=== PATIENT | male | born 1950 | race Caucasian/White ===

== ENCOUNTER 2016-04-10 08:25 | Outpatient (CLI) | payer MEDICARE, OTHER ==
[~2016-04-10] VITALS: Ht 182.9 cm; Wt 87.1 kg
[2016-04-10] VITALS (18 sets, daily range): BP systolic 90–128; BP diastolic 54–90
[~2016-04-10 08:25] MED LIST: ATOR40TA59 PO; DIPH25TA64 PO; FERR-26 PO; FURO20TA3 PO; INSU100C4 SQ; INSU100I17 SQ; INSU100V13 SQ; LEVO25TA2 PO; LISI2.5T PO; MELA3TAB PO; METF500T4 PO; NADO20TA PO; PRED20TA PO; SPIR25TA3 PO
[2016-04-10 08:55] LABS: BASO % 1 % (0-3); EOS % 3 % (0-3); HEMATOCRIT 37.3 % (39.0-53.0); LYMPH # 0.8 x10^3/uL (1.0-4.8); LYMPH % 14 % (24-48); MEAN CORPUSCULAR HEMOGLOBIN 31 pg (25-35); MEAN CORPUSCULAR HGB CONC 35 g/dL (31-37); MEAN CORPUSCULAR VOLUME 90 fL (79-100); MONO % 13 % (0-9); NEUT % 70 % (31-73); PLATELET COUNT 92 x10^3/uL (140-400); RED BLOOD COUNT 4.17 x10^6/uL (4.30-5.70); RED CELL DISTRIBUTION WIDTH 16.8 % (11.5-14.5); WHITE BLOOD COUNT 5.9 x10^3/uL (4.0-11.0)
[2016-04-10 10:22] LABS: INR 1.4 (0.8-1.1); PROTHROMBIN TIME PATIENT 15.9 SEC (11.7-14.0)
[2016-04-10] MEDS ORDERED: LIDOCAINE 1% / SOD BICARB 8.4% 20 ML VIAL. IJ ONE ×2 (11:20→11:45)
[2016-04-10] MEDS ORDERED: DIAZEPAM 5 MG TABLET PO ONE (11:36)
[2016-04-10] MEDS ORDERED: ALBUMIN HUMAN 25% 100 ML IV ONE ×3 (12:04→13:00)
--- NOTE | 2016-04-10 12:33 | PDOC ---
BRIEF OPERATIVE NOTE Pre-Op Diagnosis ascites and pleural effusion Post-Op Diagnosis same Procedure Performed US paracentesis and US left thoracentesis Surgeon Xiomy Anesthesia Type: Local Findings 5.3L pink turbid (chylous?) ascites removed and 1.5 L of pink turbid (chylous?) effusion removed. Complications no immediate MELISSA MARTINEZ MD Apr 10, 2016 12:33
[2016-04-10] MEDS ORDERED: FURO20TA3 PO (14:07)
[2016-04-10 20:37] LABS: BF COLOR YELLOW
[2016-04-10 20:38] LABS: BF CLARITY TURBID
[2016-04-10 20:39] LABS: BF CLARITY TURBID; BF COLOR YELLOW
--- NOTE | 2016-04-11 09:07 | RAD ---
Procedure: Ultrasound-guided paracentesis, and ultrasound-guided thoracentesis of the right chest. Clinical Indication: 65-year-old male with GEORGES and recurrent abdominal ascites and pleural effusion Sedation: Local anesthesia and oral anxiolysis Antibiotics: None Contrast: None Sterility: The procedure was performed in its entirety using appropriate elements of sterile technique. Consent: The procedure was explained in its entirety to the patient or the patients designated consumer sales representative by a member of the treatment team, including a discussion of the risks, benefits and commonly accepted alternatives to the procedure, as well as the expected consequences of no therapy whatsoever. Discussion of the risks included, but was not limited to, those that are most frequent and those that are rare but possibly severe or life-threatening, as well as the possibility of unforeseen complications. Technique and Findings: Following informed consent, the patient was prepped and draped in usual sterile fashion. Ultrasound interrogation of the abdomen revealed a moderate amount of abdominal ascites. 1% lidocaine was used to achieve local anesthesia over the right lower quadrant of the abdomen. A small dermatotomy was made. Under ultrasound guidance, a 6 [place] safety centesis catheter was advanced into the peritoneum and 5.3 L of turbid pink fluid was removed. The catheter was then removed and hemostasis was achieved with manual compression. The patient was then repositioned in the upright position, and the left posterior chest was prepped and draped in usual sterile fashion. Ultrasound interrogation of the left chest revealed the moderate left pleural effusion. 1% lidocaine was used to achieve local anesthesia. A small dermatotomy was made. Under ultrasound guidance, an new 6 [place] safety centesis catheter was advanced into the pleural space and 1.5 L of similar appearing turbid pink fluid was removed. The catheter was then removed and hemostasis was achieved with manual compression. Chest x-ray was then obtained. Complications: No immediate Impression: 1. Ultrasound-guided paracentesis yielding 5.3 L of pink turbid fluid, possibly chylous. 2. Ultrasound-guided left thoracentesis yielding 1.5 L of similar appearing fluid.
--- NOTE | 2016-04-11 11:41 | RAD ---
Portable chest, 04/10/2016: History: Postthoracentesis evaluation Comparison is made to a study from 07/09/2011. The heart is within normal limits in size. There is now a moderate volume of pleural fluid on the left. There is underlying parahilar atelectasis/infiltrate. There is no evidence of pneumothorax. The right chest is clear. No right-sided pleural fluid is evident. IMPRESSION: 1. Moderate volume of left-sided pleural fluid with moderate underlying atelectasis/infiltrate. 2. No evidence of pneumothorax.
== END 2016-04-10 14:30 | disposition home or self-care (01) ==
LOC: INTRAD 08:25
PROVIDERS: ATTEND Internal Medicine
DX: R18.8 Other ascites (principal); E78.00 Pure hypercholesterolemia, unspecified; Z90.49 Acquired absence of other specified parts of digestive tract; K21.9 Gastro-esophageal reflux disease without esophagitis; E11.9 Type 2 diabetes mellitus without complications; E03.9 Hypothyroidism, unspecified; F41.9 Anxiety disorder, unspecified; F32.9 Major depressive disorder, single episode, unspecified; K76.9 Liver disease, unspecified
CPT/HCPCS: 32555; 36415; 49083; 71010; 82947; 85027; 85610; 89050; P9046

== ENCOUNTER 2016-05-04 07:06 | Outpatient (CLI) | payer MEDICARE, OTHER ==
[~2016-05-04] VITALS: Ht 182.9 cm; Wt 83.9 kg
[2016-05-04] VITALS (11 sets, daily range): BP systolic 92–115; BP diastolic 68–83
[2016-05-04 08:13] LABS: BASO % 1 % (0-3); EOS % 2 % (0-3); HEMATOCRIT 36.9 % (39.0-53.0); HEMOGLOBIN 12.9 g/dL (13.0-17.5); LYMPH # 0.6 x10^3/uL (1.0-4.8); LYMPH % 11 % (24-48); MEAN CORPUSCULAR HEMOGLOBIN 31 pg (25-35); MEAN CORPUSCULAR HGB CONC 35 g/dL (31-37); MEAN CORPUSCULAR VOLUME 90 fL (79-100); MONO % 11 % (0-9); NEUT % 75 % (31-73); PLATELET COUNT 86 x10^3/uL (140-400); RED BLOOD COUNT 4.13 x10^6/uL (4.30-5.70); RED CELL DISTRIBUTION WIDTH 16.2 % (11.5-14.5); WHITE BLOOD COUNT 5.4 x10^3/uL (4.0-11.0)
[2016-05-04 08:23] LABS: INR 1.3 (0.8-1.1); PROTHROMBIN TIME PATIENT 15.3 SEC (11.7-14.0)
[2016-05-04] MEDS ORDERED: LIDOCAINE 1% / SOD BICARB 8.4% 20 ML VIAL. IJ ONE ×2 (08:30→09:00)
[2016-05-04] MEDS ORDERED: FENTANYL PF 100 MCG/2 ML VIAL. ONE (08:41)
[2016-05-04] MEDS ORDERED: MIDAZOLAM HCL 2 MG/2 ML VIAL. ONE (08:41)
[2016-05-04] MEDS ORDERED: MIDAZOLAM HCL 2 MG/2 ML VIAL. IV ONE (09:00)
[2016-05-04] MEDS ORDERED: FENTANYL PF 100 MCG/2 ML VIAL. IV ONE (09:00)
--- NOTE | 2016-05-04 09:32 | PDOC ---
BRIEF OPERATIVE NOTE Pre-Op Diagnosis GEORGES, ascites and pleural effusion Post-Op Diagnosis same Procedure Performed US paracentesis and US left thoracentesis Surgeon Xiomy Anesthesia Type: Conscious Sedation Specimens Obtained 3300 cc turbid/chylous pink ascites and 1500 cc turbid/chylous pink pleural fluid Complications No immediate MELISSA MARTINEZ MD May 04, 2016 09:32
--- NOTE | 2016-05-04 09:34 | PDOC ---
MODERATE SEDATION ASSESSMENT RISKS/ALTERNATIVES Risks/Alternatives Risks and alternatives of this type of sedation and procedure discussed with: RISK/ALTERNATIVES: Patient H & P ON CHART H & P H & P on chart and reviewed for co-morbid conditions and appropriate labs. H&P ON CHART: Yes STATUS PREG STATUS ASSESSED: Yes MEDS/ALLERGIES REVIEWED Meds/Allergies Reviewed Medications and Allergies including time and route of recently administered narcotics and sedatives. MEDS/ALLERGIES REVIEWED: Yes ASA RATING ASA RATING: II AIRWAY ASSESSMENT Airway Assessment Airway patency, oral function limitations, presence of caps, crowns, dentures, partials, and ability to extend neck assessed. AIRWAY ASSESSMENT: Yes MALLAMPATI SCORE MALLAMPATI SCORE: II PRE-SEDATION ASSESSMENT PRE-SEDATION ASSESSMENT: Yes MELISSA MARTINEZ MD May 04, 2016 09:34
--- NOTE | 2016-05-04 09:34 | PDOC1 ---
History and Physical Date of Procedure Date of Admission History of Present Illness Reason for Visit GEORGES and ascites and pleural effusion Past Medical History Past Medical History see nursing pre-op assessment Current Medications Current Medications Current Medications Lidocaine/Sodium Bicarbonate (Buffered Lidocaine 1%) 20 ml 1X ONCE IJ ; Start 05/04/16 at 08:30; Stop 05/04/16 at 08:31; Status DC Fentanyl Citrate (Fentanyl 2ml Vial) 100 mcg STK-MED ONCE .ROUTE ; Start at 08:41; Stop 05/04/16 at 08:42; Status DC Midazolam HCl (Versed) 2 mg STK-MED ONCE .ROUTE ; Start 05/04/16 at 08:41; Stop 05/04/16 at 08:42; Status DC Lidocaine/Sodium Bicarbonate (Buffered Lidocaine 1%) 20 ml 1X ONCE IJ ; Start 05/04/16 at 09:00; Stop 05/04/16 at 09:01; Status DC Midazolam HCl (Versed) 2 mg 1X ONCE IV ; Start 05/04/16 at 09:00; Stop at 09:01; Status DC Fentanyl Citrate (Fentanyl 2ml Vial) 100 mcg 1X ONCE IV ; Start 05/04/16 at 09: 00; Stop 05/04/16 at 09:01; Status DC Active Scripts Active Reported Furosemide 20 Mg Tablet 5 Tab PO DAILY Benadryl Allergy (Diphenhydramine Hcl) 25 Mg Tablet 25 Mg PO Levemir (Insulin Detemir) 100 Unit/1 Ml Vial 1 Unit SQ Novolog Flexpen (Insulin Aspart) 100 Unit/1 Ml Insuln.pen 1 Unit SQ Nadolol 20 Mg Tablet 1 Tab PO DAILY Lisinopril 2.5 Mg Tablet 1 Tab PO DAILY Spironolactone 25 Mg Tablet 1 Tab PO DAILY Synthroid (Levothyroxine Sodium) 25 Mcg Tablet 25 Mcg PO DAILYAC Levemir (Insulin Detemir) 100 Unit/1 Ml Vial 100 Unit SQ Novolog (Insulin Aspart) 100 Unit/1 Ml Cartridge 100 Unit SQ Ferrous Sulfate 325 Mg Tablet 1 Tab PO DAILY Metformin Hcl 500 Mg Tablet 1 Tab PO BID Atorvastatin Calcium 40 Mg Tablet 1 Tab PO DAILY Melatonin 3 Mg Tablet 1 Tab PO QHS Allergies Allergies: Coded Allergies: iodine (Verified Allergy, Severe, CODE BLUE, 02/11/14) shellfish derived (Verified Allergy, Severe, Anaphylaxis, 04/10/16) venom-honey bee (Verified Allergy, Severe, anaphylaxis, 04/10/16) Physical Exam Vital Signs Vital Signs Date Time Temp Pulse Resp B/P Pulse Ox O2 Delivery O2 Flow Rate FiO2 05/04/16 09:19 114 16 95 Room Air 05/04/16 08:04 98.0 114/83 98.0 Other see nursing pre-op assessment Assessment Assessment GEORGES and pleural effusion and ascites Problems: Plan Plan US paracentesis and US thoracentesis Left MELISSA MARTINEZ MD May 04, 2016 09:34
--- NOTE | 2016-05-04 10:10 | RAD ---
Indication status post left-sided thoracentesis. A single view of the chest was obtained at 0948. The image was obtained following left-sided thoracentesis. (This was confirmed by one of the chief cardiopulmonary technologist). The study is compared to a plain film examination April 10, 2016. There is less left pleural fluid than on the previous exam compatible with interval thoracentesis. Some volume loss and pleural fluid persists. There is a component of atelectasis in the left upper lobe. No complication is seen associated with the thoracentesis and specifically no pneumothorax is seen. IMPRESSION: Status post left-sided thoracentesis. No complication seen. Volume loss, compatible with atelectasis, in the left upper lobe
--- NOTE | 2016-05-04 11:05 | RAD ---
Procedure: Ultrasound guided paracentesis and ultrasound-guided left thoracentesis Clinical Indication: 66-year-old male with abdominal ascites and recurrent left pleural effusion and GEORGES Sedation: Local anesthesia only Antibiotics: None Fluoro Time: None Contrast: Not applicable Sterility: The procedure was performed in its entirety using appropriate elements of sterile technique. Consent: The procedure was explained in its entirety to the patient or the patients designated bottling equipment sales representative by a member of the treatment team, including a discussion of the risks, benefits and commonly accepted alternatives to the procedure, as well as the expected consequences of no therapy whatsoever. Discussion of the risks included, but was not limited to, those that are most frequent and those that are rare but possibly severe or life-threatening, as well as the possibility of unforeseen complications. Technique and Findings: Following informed consent, the patient was prepped and draped in the usual sterile fashion. Ultrasound interrogation of the abdomen revealed abdominal ascites. A hard copy ultrasound image was recorded. 1% Lidocaine was used to achieve local anesthesia over the area of interest, and a 6 [place] [id number]-[id number]-Cssrwaic catheter was advanced into the peritoneal cavity under ultrasound guidance. 3300 cc of slightly turbid pink ascites was then withdrawn. The catheter was removed and hemostasis was achieved with manual compression. The left chest was then prepped and draped in usual sterile fashion. 1% lidocaine was used to achieve local anesthesia after ultrasound interrogation revealed a large left pleural effusion. A hardcopy ultrasound image was recorded as a 6 [place] safety centesis catheter was advanced into the pleural space and 1.5 L of slightly turbid pink fluid was removed. The catheter was removed and hemostasis was achieved with manual compression. Complications: No immediate Impression: 1. Ultrasound-guided paracentesis as described 2. Ultrasound-guided left thoracentesis as described
[2016-05-04 13:55] LABS: BF CLARITY TURBID; BF COLOR RED
[2016-05-04 13:56] LABS: BF COLOR RED
[2016-05-04 13:57] LABS: BF CLARITY TURBID
== END 2016-05-04 11:35 | disposition home or self-care (01) ==
LOC: INTRAD 07:06
PROVIDERS: ATTEND Internal Medicine
DX: J90 Pleural effusion, not elsewhere classified (principal); E03.9 Hypothyroidism, unspecified; F32.9 Major depressive disorder, single episode, unspecified; F41.9 Anxiety disorder, unspecified; E78.00 Pure hypercholesterolemia, unspecified; E11.9 Type 2 diabetes mellitus without complications; K21.9 Gastro-esophageal reflux disease without esophagitis; Z96.653 Presence of artificial knee joint, bilateral; Z90.49 Acquired absence of other specified parts of digestive tract
CPT/HCPCS: 32555; 36415; 49083; 71010; 82947; 85027; 85610; 89050; J2250; J3010

== ENCOUNTER 2016-05-30 06:53 | Outpatient (CLI) | payer MEDICARE, OTHER ==
[2016-05-30] VITALS (21 sets, daily range): BP systolic 83–124; BP diastolic 55–80
[~2016-05-30] VITALS: Ht 182.9 cm; Wt 83.5 kg
[2016-05-30] MEDS ORDERED: RIFA550T PO (07:19)
[2016-05-30] MEDS ORDERED: INSU100V13 SQ (07:21)
[2016-05-30] MEDS ORDERED: TEMA7.5C PO (07:21)
[2016-05-30] MEDS ORDERED: OMEP20TA63 PO (07:21)
[2016-05-30 07:26] LABS: BASO # 0.1 x10^3/uL (0.0-0.2); BASO % 1 % (0-3); EOS % 1 % (0-3); HEMATOCRIT 36.5 % (39.0-53.0); HEMOGLOBIN 12.6 g/dL (13.0-17.5); LYMPH # 0.7 x10^3/uL (1.0-4.8); LYMPH % 9 % (24-48); MEAN CORPUSCULAR HEMOGLOBIN 31 pg (25-35); MEAN CORPUSCULAR HGB CONC 34 g/dL (31-37); MEAN CORPUSCULAR VOLUME 91 fL (79-100); MONO % 10 % (0-9); NEUT % 79 % (31-73); PLATELET COUNT 114 x10^3/uL (140-400); RED CELL DISTRIBUTION WIDTH 17.5 % (11.5-14.5); WHITE BLOOD COUNT 7.5 x10^3/uL (4.0-11.0)
[2016-05-30 07:34] LABS: INR 1.3 (0.8-1.1); PROTHROMBIN TIME PATIENT 15.2 SEC (11.7-14.0)
[2016-05-30] MEDS ORDERED: LIDOCAINE 1% / SOD BICARB 8.4% 20 ML VIAL. IJ ONE ×2 (08:04→09:15)
[2016-05-30] MEDS ORDERED: MIDAZOLAM HCL 2 MG/2 ML VIAL. ONE (08:32)
[2016-05-30] MEDS ORDERED: FENTANYL PF 100 MCG/2 ML VIAL. ONE (08:32)
[2016-05-30] MEDS ORDERED: FENTANYL PF 100 MCG/2 ML VIAL. IV ONE (08:49)
[2016-05-30] MEDS ORDERED: MIDAZOLAM HCL 2 MG/2 ML VIAL. IV ONE (08:49)
[2016-05-30] MEDS ORDERED: ALBUMIN HUMAN 25% 200 ML IV ONE (09:43)
[2016-05-30] MEDS ORDERED: ALBUMIN HUMAN 25% 100 ML IV ONE ×2 (09:45→10:30)
--- NOTE | 2016-05-30 10:22 | PDOC ---
MODERATE SEDATION ASSESSMENT RISKS/ALTERNATIVES Risks/Alternatives Risks and alternatives of this type of sedation and procedure discussed with: RISK/ALTERNATIVES: Patient H & P ON CHART H & P H & P on chart and reviewed for co-morbid conditions and appropriate labs. H&P ON CHART: Yes STATUS PREG STATUS ASSESSED: N/A MEDS/ALLERGIES REVIEWED Meds/Allergies Reviewed Medications and Allergies including time and route of recently administered narcotics and sedatives. MEDS/ALLERGIES REVIEWED: Yes ASA RATING ASA RATING: III AIRWAY ASSESSMENT Airway Assessment Airway patency, oral function limitations, presence of caps, crowns, dentures, partials, and ability to extend neck assessed. AIRWAY ASSESSMENT: Yes MALLAMPATI SCORE MALLAMPATI SCORE: II PRE-SEDATION ASSESSMENT PRE-SEDATION ASSESSMENT: Yes NATHAN BAKER MD May 30, 2016 10:22
--- NOTE | 2016-05-30 10:26 | PDOC1 ---
History and Physical Date of Procedure Date of Admission 05/30/16 Procedure Procedure Image guided paracentesis + left thoracentesis Indication Indication 66 YO male with ESLD, and with refractory ascites and left hepatic hydrothorax. Past Medical History Past Medical History See Nursing Pre Procedure PMH Past Surgical History Past Surgical History See Nursing Pre procedure PSH Current Medications Current Medications Current Medications Lidocaine/Sodium Bicarbonate (Buffered Lidocaine 1%) 20 ml STK-MED ONCE IJ ; Start 05/30/16 at 08:04; Stop 05/30/16 at 08:05; Status DC Fentanyl Citrate (Fentanyl 2ml Vial) 100 mcg STK-MED ONCE .ROUTE ; Start at 08:32; Stop 05/30/16 at 08:33; Status DC Midazolam HCl (Versed) 2 mg STK-MED ONCE .ROUTE ; Start 05/30/16 at 08:32; Stop 05/30/16 at 08:33; Status DC Lidocaine/Sodium Bicarbonate (Buffered Lidocaine 1%) 20 ml 1X ONCE IJ Last administered on 05/30/16 10:17; Start 05/30/16 at 09:15; Stop 05/30/16 at 09:16; Status DC Midazolam HCl (Versed) 2 mg 1X ONCE IV Last administered on 05/30/16 10:16; Start 05/30/16 at 08:49; Stop 05/30/16 at 09:06; Status DC Fentanyl Citrate 100 mcg 100 mcg 1X ONCE IV Last administered on 05/30/16 10: 16; Start 05/30/16 at 08:49; Stop 05/30/16 at 09:06; Status DC Albumin Human 200 ml @ As Directed STK-MED ONCE IV ; Start 05/30/16 at 09:43; Stop 05/30/16 at 09:44; Status DC Albumin Human 100 ml @ 100 mls/hr 1X ONCE IV Last administered on 05/30/16 10 :18; Start 05/30/16 at 09:45; Stop 05/30/16 at 10:44 Albumin Human (Albuminar) 100 ml @ 100 mls/hr 1X ONCE IV Last administered on 05/30/16 10:20; Start 05/30/16 at 10:30; Stop 05/30/16 at 11:29 Active Scripts Active Reported Temazepam 7.5 Mg Capsule 7.5 Mg PO HS PRN Prilosec Otc (Omeprazole Magnesium) 20 Mg Tablet.dr 40 Mg PO DAILY Levemir (Insulin Detemir) 100 Unit/1 Ml Vial 40 Unit SQ DAILYWSUP Xifaxan (Rifaximin) 550 Mg Tablet 1 Tab PO BID Furosemide 20 Mg Tablet 5 Tab PO DAILY Benadryl Allergy (Diphenhydramine Hcl) 25 Mg Tablet 25 Mg PO Novolog Flexpen (Insulin Aspart) 100 Unit/1 Ml Insuln.pen 5 Unit SQ TID Spironolactone 25 Mg Tablet 1 Tab PO DAILY Synthroid (Levothyroxine Sodium) 25 Mcg Tablet 25 Mcg PO DAILYAC Levemir (Insulin Detemir) 100 Unit/1 Ml Vial 25 Unit SQ DAILY Ferrous Sulfate 325 Mg Tablet 1 Tab PO DAILY Metformin Hcl 500 Mg Tablet 1 Tab PO DAILY Atorvastatin Calcium 40 Mg Tablet 1 Tab PO DAILY Allergies Allergies: Coded Allergies: iodine (Verified Allergy, Severe, CODE BLUE, 02/11/14) shellfish derived (Verified Allergy, Severe, Anaphylaxis, 04/10/16) venom-honey bee (Verified Allergy, Severe, anaphylaxis, 04/10/16) Physical Exam Vital Signs Vital Signs Date Time Temp Pulse Resp B/P Pulse Ox O2 Delivery O2 Flow Rate FiO2 05/30/16 10:16 16 98 Nasal Cannula 2.0 05/30/16 10:07 77 05/30/16 07:37 97.7 102/70 97.7 Lungs: Other (Diminished left breath sounds) Heart: Regular rate Psych/Mental Status: Mental status NL Other Abdominal distension with fluid wave Assessment Assessment ESLD with refractory ascites/hepatic hydrothorax Problems: Plan Plan U/S guided Tx paracentesis + U/S guided Tx left thoracentesis. NATHAN BAKER MD May 30, 2016 10:26
--- NOTE | 2016-05-30 10:33 | PDOC ---
Exam Copy Editor Copy Editor Elizabeth Metropolitan Editor Metropolitan Editor Jim Macias. F Ndumbu. Pre-Procedure Diagnosis Pre-Procedure Diagnosis 66 YO male with ESLD and with recurrent/refractory ascites/left hepatic hydrothorax Post-Procedure Diagnosis Post-Procedure Diagnosis Same. Of note, ascitic fluid and pleural fluid now appears chylous, which, by report, represents interval change from 05/04/16. Procedure Performed Procedure Performed U/S guided Tx paracentesis + left thoracentesis. Type of Anesthesia Type of Anesthesia Local + Mod sedation Estimated Blood Loss EBL: Trace Specimens Specimans 6600 cc chylous ascites. 3000 cc chylous left pleural fluid. Condition of Patient Condition of Patient Stable. No apparent complication. Infusion of 50 grams 25% albumin was initiated during drainage procedures. Disposition Disposition From IR to [facility]. F/u CXR in 1 hr. Home post recovery from mod sedation, if no ptx or other problems. Full report to follow. NATHAN BAKER MD May 30, 2016 10:33
--- NOTE | 2016-05-30 11:39 | RAD ---
AP inspiration and expiration chest radiographs 05/30/2016 Clinical history: Post thoracentesis. AP portable inspiration and expiration digital radiographs of the chest were obtained. Comparison study is dated 05/04/2016. The cardiac silhouette is mildly enlarged. The thoracic aorta is mildly tortuous. There is a small left pleural effusion. Left upper lobe atelectasis and/or infiltrate is seen. Prominence of the left hilum is again noted. No pneumothorax is seen. The right lung is clear. The osseous structures are unchanged. Impression: No pneumothorax is seen.
[2016-05-30 13:06] LABS: BF COLOR YELLOW
[2016-05-30 13:07] LABS: BF CLARITY TURBID
[2016-05-30 13:08] LABS: BF CLARITY TURBID; BF COLOR YELLOW
--- NOTE | 2016-05-30 16:09 | RAD ---
Ultrasound-guided therapeutic paracentesis Ultrasound-guided therapeutic left thoracentesis Indication: 58-year-old male with end-stage liver disease and with recurrent/refractory large volume ascites and left hepatic hydrothorax. Image guided therapeutic paracentesis and therapeutic left thoracentesis has been requested. Anesthesia: 71 minutes moderate sedation was provided utilizing a total of 2 mg Versed and 100 mcg fentanyl, IV. The patient was appropriately monitored by a qualified independent observer throughout the time of moderate sedation. Procedure: Informed consent was obtained from the patient. Moderate sedation was provided with IV Versed and fentanyl. Ultrasound-guided therapeutic paracentesis: Preliminary ultrasound examination confirmed the presence of a large volume of abdominal/pelvic ascites. A right lower quadrant abdominal peritoneal fluid collection, suitable for sono guided paracentesis, was selected, was marked, and was documented with a single hard copy ultrasound image. That area was then prepped and draped in the usual sterile fashion. Conscious sedation was provided with IV Versed and fentanyl. Using aseptic technique, local anesthesia, and direct ultrasound guidance, a 21-gauge micropuncture needle was successfully introduced into the selected peritoneal fluid collection. The 21-gauge needle was exchanged over a microguidewire for a micropuncture sheath, which was, in turn, exchanged over a 0.035 inch guidewire for a 6 [place] drainage catheter. Approximately 6600 cc of chylous appearing ascites was removed, a sample of which was submitted to the clinical laboratory for cell count and culture. The drainage catheter was then removed and a sterile dressing was applied. Patient tolerated the procedure well without apparent complication. Infusion of 50 g 25% albumin was initiated during the paracentesis procedure. Ultrasound-guided therapeutic left thoracentesis: Preliminary ultrasound examination confirmed the presence of a moderately large left pleural effusion, with associated left basilar compression atelectasis. A low left lateral skin site suitable for ultrasound-guided paracentesis was selected, was marked, and was documented with a hard copy ultrasound image. That area was prepped and draped in usual sterile fashion. Using aseptic technique, local anesthesia, and ultrasound guidance, a 21-gauge micropuncture needle was successfully introduced into the left pleural space. The 21-gauge needle was then exchanged over a microguidewire for a micropuncture sheath, which was, internal, exchanged over a 0.035 in. guidewire for a 6 [place] drainage catheter. Approximately 3000 cc of chylous appearing left pleural fluid was then easily aspirated, and was discarded. The drainage catheter was removed and a sterile dressing was applied. Patient tolerated the procedure well without apparent constipation. Impression: 1. Successful, uneventful ultrasound-guided therapeutic paracentesis, as described. 2. Successful, uneventful ultrasound-guided therapeutic left thoracentesis, as described.
== END 2016-05-30 11:30 | disposition home or self-care (01) ==
LOC: INTRAD 06:53
PROVIDERS: ATTEND Internal Medicine
DX: K72.90 Hepatic failure, unspecified without coma (principal); J90 Pleural effusion, not elsewhere classified; R18.8 Other ascites; E78.00 Pure hypercholesterolemia, unspecified; K21.9 Gastro-esophageal reflux disease without esophagitis; E11.9 Type 2 diabetes mellitus without complications; E03.9 Hypothyroidism, unspecified; F32.9 Major depressive disorder, single episode, unspecified; Z87.39 Personal history of other diseases of the musculoskeletal system and connective tissue; Z90.49 Acquired absence of other specified parts of digestive tract; Z96.653 Presence of artificial knee joint, bilateral
CPT/HCPCS: 32555; 36415; 49083; 71035; 85027; 85610; 87205; 89050; A4215; C1729; C1892; C1894; J2250; J3010; P9046; 87071; 87075

== ENCOUNTER 2016-06-06 20:30 | Inpatient (IN) | payer MEDICARE, OTHER ==
[~2016-06-06] VITALS: Ht 182.9 cm; Wt 84.4 kg
[~2016-06-06 20:30] MED LIST changes: +OMEP20TA63 PO; +RIFA550T PO; +TEMA7.5C PO
[2016-06-06 22:07] VITALS: BP 98/71
[2016-06-06] MEDS ORDERED: ALBUTEROL SULFATE 2.5 MG/3 ML NEBU. NEB PRN (23:30)
[2016-06-06] MEDS ORDERED: ONDANSETRON PF 4 MG/2 ML VIAL. IV PRN (23:30)
[2016-06-06] MEDS ORDERED: hydrALAZINE 20 MG/ML VIAL. IVP PRN (23:30)
[2016-06-06] MEDS ORDERED: HYDROCODONE/APAP 5/325MG TABLET. PO PRN (23:30)
[2016-06-06] MEDS ORDERED: ACETAMINOPHEN 325 MG TABLET. PO PRN (23:30)
[2016-06-06] MEDS ORDERED: MORPHINE SULFATE 2 MG/ML DISP.SYRIN. IV PRN (23:30)
[2016-06-07] MEDS ORDERED: TEMAZEPAM 7.5 MG CAPSULE PO PRN
[2016-06-07] MEDS ORDERED: INSULIN DETEMIR 300 UNITS/3 ML INSULN.PEN. SQ ONE (00:30)
[2016-06-07] MEDS ORDERED: ATORVASTATIN CALCIUM 40 MG TABLET. PO ONE (00:30)
[2016-06-07] MEDS ORDERED: INSULIN ASPART 300 UNITS/3 ML INSULN.PEN SQ ONE (00:30)
[2016-06-07 03:06] VITALS: BP 96/67
[2016-06-07 05:03] LABS: BASO % 1 % (0-3); EOS % 2 % (0-3); HEMATOCRIT 33.2 % (39.0-53.0); HEMOGLOBIN 11.7 g/dL (13.0-17.5); LYMPH # 0.8 x10^3/uL (1.0-4.8); LYMPH % 10 % (24-48); MEAN CORPUSCULAR HEMOGLOBIN 32 pg (25-35); MEAN CORPUSCULAR HGB CONC 35 g/dL (31-37); MEAN CORPUSCULAR VOLUME 90 fL (79-100); MONO % 12 % (0-9); NEUT % 75 % (31-73); PLATELET COUNT 97 x10^3/uL (140-400); RED BLOOD COUNT 3.68 x10^6/uL (4.30-5.70); RED CELL DISTRIBUTION WIDTH 17.3 % (11.5-14.5); WHITE BLOOD COUNT 7.6 x10^3/uL (4.0-11.0)
[2016-06-07 05:12] LABS: CALCIUM 8.5 mg/dL (8.5-10.1); CREATININE 1.3 mg/dL (0.7-1.3); GFR 54.9; POTASSIUM 4.8 mmol/L (3.5-5.1)
[2016-06-07] MEDS ORDERED: INFLUENZA VAX SCREEN BY RX. MC PRN (05:15)
[2016-06-07] MEDS ORDERED: PNEUMOCOCCAL VAX SCREEN BY RX. MC PRN (05:15)
[2016-06-07] MEDS: LEVOTHYROXINE 25 MCG TABLET. PO SCH (06:14)
[2016-06-07 07:00] VITALS: BP 99/66
[2016-06-07] MEDS: INSULIN ASPART 300 UNITS/3 ML INSULN.PEN SQ SCH ×3 (08:00→18:22)
--- NOTE | 2016-06-07 08:29 | PDOC2 ---
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 Finn Kay SOURCE Source: Chart review, Patient HISTORY OF PRESENT ILLNESS HISTORY OF PRESENT ILLNESS 66 year old male transferred from [facility] with left supramammary chest pain described as sharp and starting about 1715 yesterday associated with dyspnea and diaphoresis while at rest. No acute changes in EKG and initial troponin level not consistent with ACS. CT scan of the chest demonstrates large left pleural effusion and recent thoracentesis of 3 L on 05/30/2016. Paracentesis of 6.9 L on the same day. Known ESLD with GEOREGS and now scheduled for weekly thoracentesis and paracentesis. Reason for Visit: chest pain PAST MEDICAL HISTORY Cardiovascular: HTN GI: Other (ESLD due to GEORGES) Musculoskeletal: Osteoarthritis Renal/: Other (renal calculi - none in 3 years) Endocrine: Diabetes (type II with peripheral neuropathy), Hypothyroidism Dermatology: Melanoma PAST SURGICAL HISTORY Past Surgical History: Total knee replacement (bilateral with subsequent right knee revision ), Other (laminectomy at L4-L5; excision of melanoma from multiple locations; right shoulder AC repair- 1970) FAMILY HISTORY Family History: Hearing Loss (paternal and maternal GF of [place]) SOCIAL HISTORY Social History 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 Smoke: No ALCOHOL: none Drugs: None CURRENT MEDICATIONS CURRENT MEDICATIONS Current Medications Medications (Trade) Dose Ordered Sig/Edwar Route PRN Reason Start Time Stop Time Status Last Admin Dose Admin Levothyroxine Sodium (Synthroid) 25 mcg DAILY07 PO 06/07/16 07:00 06/07/16 06:14 Insulin Detemir (Levemir) 40 units 1X ONCE SQ 06/07/16 00:30 06/07/16 00:31 DC 06/07/16 00:54 Insulin Aspart (Novolog) 5 units 1X ONCE SQ 06/07/16 00:30 06/07/16 00:31 DC 06/07/16 00:54 Atorvastatin Calcium (Lipitor) 40 mg 1X ONCE PO 06/07/16 00:30 06/07/16 00:31 DC 06/07/16 00:42 ALLERGIES ALLERGIES: Coded Allergies: iodine (Verified Allergy, Severe, CODE BLUE, 02/11/14) shellfish derived (Verified Allergy, Severe, Anaphylaxis, 04/10/16) venom-honey bee (Verified Allergy, Severe, anaphylaxis, 04/10/16) ROS Review of System 14 point review with pertinent positives in HPI PHYSICAL EXAM General: Alert, Oriented X3, Cooperative HEENT: Atraumatic, PERRLA Lungs: Other (severely diminished on left side posteriorly; clear on right) Heart: Regular rate (mild tachycardia; ST), Normal S1, Normal S2, Other (no carotid bruits) Abdomen: Other (positive fluid wave with ascites) Extremities: No edema, Normal pulses Skin: No rashes Neuro: Normal speech Psych/Mental Status: Mental status NL, Mood NL MUSCULOSKELETAL: Osteoarthritic changes both hands VITALS VITALS Vital Signs Date Time Temp Pulse Resp B/P Pulse Ox O2 Delivery O2 Flow Rate FiO2 06/07/16 03:06 98.0 72 18 96/67 96 Room Air 98.0 LABS Lab: Laboratory Tests Test 06/07/16 00:45 06/07/16 04:00 Glucose (Fingerstick) 211mg/dL (70-99) White Blood Count 7.6x10^3/uL (4.0-11.0) Red Blood Count 3.68x10^6/uL (4.30-5.70) Hemoglobin 11.7g/dL (13.0-17.5) Hematocrit 33.2% (39.0-53.0) Mean Corpuscular Volume 90fL (79-100) Mean Corpuscular Hemoglobin 32pg (25-35) Mean Corpuscular Hemoglobin Concent 35g/dL (31-37) Red Cell Distribution Width 17.3% (11.5-14.5) Platelet Count 97x10^3/uL (140-400) Neutrophils (%) (Auto) 75% (31-73) Lymphocytes (%) (Auto) 10% (24-48) Monocytes (%) (Auto) 12% (0-9) Eosinophils (%) (Auto) 2% (0-3) Basophils (%) (Auto) 1% (0-3) Neutrophils # (Auto) 5.7x10^3uL (1.8-7.7) Lymphocytes # (Auto) 0.8x10^3/uL (1.0-4.8) Monocytes # (Auto) 0.9x10^3/uL (0.0-1.1) Eosinophils # (Auto) 0.1x10^3/uL (0.0-0.7) Basophils # (Auto) 0.0x10^3/uL (0.0-0.2) Sodium Level 129mmol/L (136-145) Potassium Level 4.8mmol/L (3.5-5.1) Chloride Level 96mmol/L (98-107) Carbon Dioxide Level 24mmol/L (21-32) Anion Gap 9 (6-14) Blood Urea Nitrogen 34mg/dL (8-26) Creatinine 1.3mg/dL (0.7-1.3) Estimated GFR (Cockcroft-Gault) 54.9 Glucose Level 134mg/dL (70-99) Calcium Level 8.5mg/dL (8.5-10.1) Troponin I Quantitative < 0.017ng/mL (0.000-0.055) IMAGES IMAGES CT scan of chest @ [facility] with large left pleural effusion EKG EKG @ [facility]; SR; no acute changes; PRWP ASSESSMENT/PLAN ASSESSMENT/PLAN 1. left supramammary chest pain no acute changes in EKG and troponin levels not consistent with ACS continue serial markers obtain last ST and echo from likely etiology is large left pleural effusion - would benefit from thoracentesis today last thoracentesis was 05/30/2016 would defer any further cardiac testing until pleural effusion drained 2 ascites last tap was 05/30/2016 hx of ESLD with GEORGES and now scheduled for weekly paracentesis 3. HTN control with meds 4. DM, II with peripheral neuropathy per primary service Problems: CIARA NUÑEZ MD 06/07/16 2131: CARDIAC CONSULT ALLERGIES ALLERGIES: Coded Allergies: iodine (Verified Allergy, Severe, CODE BLUE, 02/11/14) shellfish derived (Verified Allergy, Severe, Anaphylaxis, 04/10/16) venom-honey bee (Verified Allergy, Severe, anaphylaxis, 04/10/16) ASSESSMENT/PLAN ASSESSMENT/PLAN Pt. seen and examined. Agree with above ART LIBRARIAN note. 66 y.o male with ESLD, on transplant list at on exam no significant CV abn. poor response to diuresis on outpt basis supportive care from CV perspective. Will follow along peripherally. Problems: ISIDRO MICHAELS APRN Jun 07, 2016 08:29 CIARA NUÑEZ MD Jun 07, 2016 21:31
[2016-06-07] MEDS ORDERED: FLU VACC QUAD 2016-17 (36MOS+)/PF 0.5 ML SYRINGE. VAX IM ONE (09:00)
[2016-06-07] MEDS: FERROUS SULFATE 325 MG TABLET PO SCH (09:00)
[2016-06-07] MEDS: SPIRONOLACTONE 25 MG TABLET PO SCH (09:00)
[2016-06-07] MEDS ORDERED: PNEUMOC CONJ VACC 23-VALENT 0.5 ML VIAL. VAX IM ONE (09:00)
[2016-06-07] MEDS: RIFAXIMIN 550 MG TABLET PO SCH ×2 (09:23→21:34)
[2016-06-07] MEDS: FUROSEMIDE 40 MG TABLET PO SCH (09:24)
[2016-06-07] MEDS: PANTOPRAZOLE 40 MG TABLET. PO SCH (09:24)
[2016-06-07] MEDS: METFORMIN 500 MG TABLET. PO SCH (09:24)
[2016-06-07] MEDS: INSULIN DETEMIR 300 UNITS/3 ML INSULN.PEN. SQ SCH (09:44)
[2016-06-07 13:00] VITALS: BP 91/67
[2016-06-07 15:27] LABS: INR 1.3 (0.8-1.1); PROTHROMBIN TIME PATIENT 15.6 SEC (11.7-14.0)
[2016-06-07 15:45] VITALS: BP 97/69
[2016-06-07 15:48] LABS: ALBUMIN 3.4 g/dL (3.4-5.0); DIRECT BILIRUBIN 0.3 mg/dL (0.0-0.2); TOTAL BILIRUBIN 1.7 mg/dL (0.2-1.0)
--- NOTE | 2016-06-07 16:42 | HP ---
ADMIT DATE: 06/07/2016 CHIEF COMPLAINT: Chest pain and shortness of breath. HISTORY OF PRESENT ILLNESS: The patient is a 66-year-old gentleman with GEORGES diagnosed about 2 years ago, followed by Dr. Chavez at for transplant. He apparently has deteriorated fairly quickly and has developed chronic ascites with left-sided pleural effusion as well and has been tapped monthly to now weekly in both abdomen as well as chest. He presented to [facility] Emergency Room with shortness of breath and was transferred for further management to [facility]. The patient relates that he is otherwise actually doing fairly well. He feels that he may need more taps than once a week. Denies any fevers, denies any nausea, vomiting, or diarrhea. His p.o. intake has diminished with increasing abdominal girth. PAST MEDICAL HISTORY: GEORGES as above, hypertension, and diabetes. FAMILY HISTORY: Positive for hypertension. No heart disease, no abdominal disorders. SOCIAL HISTORY: Lives with his , retired [employer]. Denies any toxic habits. ALLERGIES: SHELLFISH CAUSING ANAPHYLAXIS. MEDICATIONS: Home medications are reconciled with MAR. REVIEW OF SYSTEMS: Positive as per HPI. He would be scheduled for a paracentesis/pleurocentesis tomorrow on an outpatient basis. PHYSICAL EXAMINATION: VITAL SIGNS: Show blood pressure of 96/67, heart rate of 72, respiratory rate at 18. He is afebrile. GENERAL: This is a well-nourished gentleman with temporal wasting. Alert and oriented, in no acute distress. HEENT: Shows no scleral icterus. NECK: Supple. LUNGS: Fairly clear on the right and decreased breath sounds on the left lower region, with crackles in the mid field. CARDIOVASCULAR: Regular rate and rhythm. ABDOMEN: Distended, soft, and nontender. EXTREMITIES: Show no edema. SKIN: Warm, soft, and dry without any rash. LABORATORY DATA: CBC with a WBC of 7.6, hemoglobin 11.7, platelets of 97, and differential within normal. Chemistries with a BUN and creatinine of 34 and 1.3, sodium at 129, potassium at 4.8, glucose fingersticks in the 120s, and troponins are negative. RADIOGRAPHIC STUDIES: Obtained at [facility]. ASSESSMENT AND PLAN: The patient is a 66-year-old gentleman with a rapidly progressing nonalcoholic steatohepatitis, on transplant list. He has required frequent taps for symptomatic ascites as well as pleural effusions. He is scheduled to undergo these tomorrow. I discussed with Interventional Radiology, to be scheduled inpatient for tomorrow morning. Otherwise, he appears fairly stable. He relates that his sodium have been dropping, and he is essentially at baseline. He is on the transplant list, but in a relatively distant future for now, due to a fairly good MELD score. However, I doubt that he will be able to sustain frequent taps weekly or even more often for a prolonged period given the low protein levels worsening. He will discuss this with his transplant physician fairly soon. Diabetes is under excellent control. We will continue for now. Hypertension is completely resolved. He has been taken off his blood pressure medications several months back. We will monitor. Currently, fairly soft, but asymptomatic. He is still on atorvastatin. Given its potential effects on liver, we would hold the medication for right now. JANEEN MCCARTY MD DR: DAVID/nts JOB#: [id number] / [id number] NEENA King MD MTDD
[2016-06-07] MEDS ORDERED: INSULIN DETEMIR 300 UNITS/3 ML INSULN.PEN. SQ SCH ×2 (17:00→21:00)
[2016-06-07 19:00] VITALS: BP 95/61
[2016-06-07] MEDS ORDERED: ATORVASTATIN CALCIUM 40 MG TABLET. PO SCH (21:00)
[2016-06-07 23:00] VITALS: BP 91/67
[2016-06-08] VITALS (26 sets, daily range): BP systolic 75–105; BP diastolic 54–69
[2016-06-08 04:49] LABS: BASO % 1 % (0-3); EOS % 2 % (0-3); HEMATOCRIT 33.3 % (39.0-53.0); HEMOGLOBIN 11.8 g/dL (13.0-17.5); LYMPH # 0.7 x10^3/uL (1.0-4.8); LYMPH % 12 % (24-48); MEAN CORPUSCULAR HEMOGLOBIN 32 pg (25-35); MEAN CORPUSCULAR HGB CONC 35 g/dL (31-37); MEAN CORPUSCULAR VOLUME 90 fL (79-100); MONO % 13 % (0-9); NEUT % 73 % (31-73); PLATELET COUNT 95 x10^3/uL (140-400); RED BLOOD COUNT 3.71 x10^6/uL (4.30-5.70); RED CELL DISTRIBUTION WIDTH 17.6 % (11.5-14.5); WHITE BLOOD COUNT 6.1 x10^3/uL (4.0-11.0)
[2016-06-08 05:04] LABS: CALCIUM 8.6 mg/dL (8.5-10.1); CREATININE 1.1 mg/dL (0.7-1.3); GFR 66.6; POTASSIUM 4.8 mmol/L (3.5-5.1)
[2016-06-08] MEDS: INSULIN ASPART 300 UNITS/3 ML INSULN.PEN SQ SCH ×2 (08:00→12:00)
[2016-06-08] MEDS: INSULIN DETEMIR 300 UNITS/3 ML INSULN.PEN. SQ SCH (08:00)
[2016-06-08] MEDS ORDERED: LIDOCAINE 1% / SOD BICARB 8.4% 20 ML VIAL. IJ ONE ×2 (08:35→09:30)
[2016-06-08] MEDS ORDERED: ALBUMIN HUMAN 25% 100 ML IV ONE ×2 (09:30)
[2016-06-08] MEDS ORDERED: MIDAZOLAM HCL 2 MG/2 ML VIAL. IV ONE (09:30)
[2016-06-08] MEDS ORDERED: FENTANYL PF 100 MCG/2 ML VIAL. IV ONE (09:30)
--- NOTE | 2016-06-08 10:27 | PDOC ---
MODERATE SEDATION ASSESSMENT RISKS/ALTERNATIVES Risks/Alternatives Risks and alternatives of this type of sedation and procedure discussed with: RISK/ALTERNATIVES: Patient H & P ON CHART H & P H & P on chart and reviewed for co-morbid conditions and appropriate labs. H&P ON CHART: Yes STATUS PREG STATUS ASSESSED: N/A MEDS/ALLERGIES REVIEWED Meds/Allergies Reviewed Medications and Allergies including time and route of recently administered narcotics and sedatives. MEDS/ALLERGIES REVIEWED: Yes ASA RATING ASA RATING: III AIRWAY ASSESSMENT Airway Assessment Airway patency, oral function limitations, presence of caps, crowns, dentures, partials, and ability to extend neck assessed. AIRWAY ASSESSMENT: Yes MALLAMPATI SCORE MALLAMPATI SCORE: II PRE-SEDATION ASSESSMENT PRE-SEDATION ASSESSMENT: Yes NATHAN BAKER MD Jun 08, 2016 10:27
--- NOTE | 2016-06-08 10:31 | PDOC ---
Exam Funeral Home Director Funeral Home Director Elizabeth Clinical Nurse Reviewer Clinical Nurse Reviewer B Gilberto Pre-Procedure Diagnosis Pre-Procedure Diagnosis 66 YO male with NASN, ESLD, and refractory ascites and left hepatic hydrothorax. Post-Procedure Diagnosis Post-Procedure Diagnosis Same Procedure Performed Procedure Performed CT guided left thoracentesis CT guided paracentesis Type of Anesthesia Type of Anesthesia Local + Mod sedation Estimated Blood Loss EBL: Trace Specimens Specimans 4000 cc white-cloudy left pleural fluid removed----sample to lab for culture and cell count 5000 cc white-cloudy ascites removed and discarded Condition of Patient Condition of Patient Stable. No apparent complication. Infusion of 50 grams 25% albumin initiated during drainage procedures. Disposition Disposition From IR/CT return to [facility]. F/u with [facility] transplant team. Full report to follow. NATHAN BAKER MD Jun 08, 2016 10:31
[2016-06-08] MEDS: METFORMIN 500 MG TABLET. PO SCH (11:30)
[2016-06-08] MEDS: FUROSEMIDE 40 MG TABLET PO SCH (11:36)
[2016-06-08] MEDS: SPIRONOLACTONE 25 MG TABLET PO SCH (11:36)
[2016-06-08] MEDS: FERROUS SULFATE 325 MG TABLET PO SCH (11:55)
[2016-06-08] MEDS: RIFAXIMIN 550 MG TABLET PO SCH (11:55)
[2016-06-08] MEDS: LEVOTHYROXINE 25 MCG TABLET. PO SCH (11:55)
[2016-06-08] MEDS: PANTOPRAZOLE 40 MG TABLET. PO SCH (11:55)
--- NOTE | 2016-06-08 12:22 | RAD ---
Examination: Expiration and inspiration frontal views portable chest History: History of left thoracocentesis Comparison: 05/30/2016 Findings: The cardiomediastinal silhouette grossly appears unremarkable. Minimal atelectasis identified in the right lung base. There is no evidence of pneumothorax. Impression: 1. No evidence of pneumothorax. 2. Minimal right lung base atelectasis.
[2016-06-08 12:53] LABS: BF COLOR STRAW
[2016-06-08 12:54] LABS: BF CLARITY CLOUDY
--- NOTE | 2016-06-08 14:55 | RAD ---
CT-guided therapeutic left thoracentesis CT-guided therapeutic paracentesis Indication: 58-year-old male with Dewey, end-stage liver disease, refractory large volume ascites, and refractory large volume left hepatic hydrothorax. Repeat image guided left thoracentesis and paracentesis has been requested. Anesthesia: 53 minutes moderate sedation was provided utilizing a total of 1 mg Versed and 50 mcg fentanyl, IV. The patient was appropriately monitored by a qualified independent observer throughout the time of moderate sedation. Procedure: Informed consent was obtained from the patient. He was placed supine on the CT scanner. Moderate sedation was provided with IV Versed and fentanyl. Left therapeutic thoracentesis: Preliminary noncontrast CT images confirmed the presence of a large recurrent left pleural effusion, with associated left lung compression atelectasis. A skin site suitable for CT-guided thoracentesis was selected and marked along the lateral aspect of lower left hemithorax. That area was prepped and draped in the usual sterile fashion. Using aseptic technique, local anesthesia, and CT guidance, a micropuncture sheath was successfully introduced into the low left lateral pleural space. This sheath was then exchanged over a guidewire for an 8 Guinean drainage catheter. Approximately 4000 cc of white-cloudy pleural fluid was then easily removed, a samples of which was submitted to microbiology for culture and to hematology for cell count.. Completion CT images documented marked reduction in volume of the left pleural effusion, without pneumothorax. The drainage catheter was removed and a sterile dressing was applied. Patient tolerated the procedure well without apparent complication. Infusion of 50 g 25% albumin was initiated during the paracentesis procedure. Therapeutic paracentesis: Preliminary noncontrast CT images were obtained through abdomen and pelvis. These images confirmed the presence of a large volume of abdominal and pelvic ascites. A right abdominal skin site suitable for CT-guided paracentesis was selected and marked. The area was prepped and draped in usual sterile fashion. Using aseptic technique, local anesthesia, and CT guidance, a micropuncture sheath was successfully introduced into right lateral peritoneal cavity. The sheath was then exchanged over a guidewire for an 8 Guinean drainage catheter. Approximately 5000 cc of white-cloudy ascites was then easily removed, and was discarded. Completion CT images revealed marked reduction in volume of ascites. The drainage catheter was removed and a sterile dressing was applied. Patient tolerated the procedure well without apparent complication. Impression: 1. Successful, uneventful CT-guided therapeutic left thoracentesis, as described. 2. Successful, uneventful CT-guided therapeutic paracentesis, as described. PQRS compliance statement: One or more of the following individualized dose reduction techniques was utilized for this CT procedure: 1. Automated exposure control. 2. Adjustment of MA and/or KV according to patient size. 3. Iterative reconstruction technique.
--- NOTE | 2016-06-09 22:44 | DS ---
DATE OF DISCHARGE: 06/08/2016 CHIEF COMPLAINT: Chest pain, shortness of breath. HOSPITAL COURSE: The patient is a 66-year-old gentleman with GEORGES diagnosed 2 years prior, on liver transplant list at [facility]. He presented to the Emergency Room with recurrent frequent ascites as well as pleural effusion for both of which he gets weekly taps. He actually became short of breath even before his scheduled tap on Saturday. In discussion with Interventional Radiology, he was tapped on plan today 06/08/2016 with much improvement of his symptoms. For complaints of shortness of breath and chest pain, Cardiology consult was obtained. This was attributed to the pleural effusion and pressure from his ascites, no further care. A cardiac workup was undertaken. The patient was advised to follow up with his technician terminal and repeater. He has a PE given the frequency of his paracentesis and thoracentesis. PHYSICAL EXAMINATION: VITAL SIGNS: Show a blood pressure of 86/57, heart rate of 74, respiratory rate at 18. He is afebrile. GENERAL: This was a well-nourished 66-year-old gentleman, alert and oriented, in no acute distress. HEENT: Shows no scleral icterus. NECK: Supple. LUNGS: Clear with decreased breath sounds on the left. ABDOMEN: Distended, soft. EXTREMITIES: Show no edema. DISCHARGE DATE: 06/08/2016. DISCHARGE DIAGNOSIS: Fluid overload secondary to GEORGES. DISCHARGE DISPOSITION: To home. DISCHARGE CONDITION: Improved. DISCHARGE MEDICATIONS: Please refer to MAR. DISCHARGE INSTRUCTIONS: The patient will follow up with his technician terminal and repeater, Dr. Chavez at , [facility]. JANEEN MCCARTY MD DR: UR/nts JOB#: [id number] / [id number] NEENA King MDD
== END 2016-06-08 14:55 | disposition home or self-care (01) | DRG 442 ==
LOC: 2 NORTH 21:22
PROVIDERS: ADMIT Internal Medicine; ATTEND Internal Medicine
PROC: 0W9B30Z Drainage of Left Pleural Cavity with Drainage Device, Percutaneous Approach (ICD-10-PCS; principal; 2016-06-08)
PROC: 0W9G30Z Drainage of Peritoneal Cavity with Drainage Device, Percutaneous Approach (ICD-10-PCS; 2016-06-08)
DX: K75.81 Nonalcoholic steatohepatitis (NASH) (principal); R18.8 Other ascites; J91.8 Pleural effusion in other conditions classified elsewhere; E03.9 Hypothyroidism, unspecified; E11.42 Type 2 diabetes mellitus with diabetic polyneuropathy; E87.70 Fluid overload, unspecified; I10 Essential (primary) hypertension; Z96.653 Presence of artificial knee joint, bilateral; M19.90 Unspecified osteoarthritis, unspecified site; Z91.030 Bee allergy status; Z91.041 Radiographic dye allergy status; Z85.820 Personal history of malignant melanoma of skin; Z82.49 Family history of ischemic heart disease and other diseases of the circulatory system; Z76.82 Awaiting organ transplant status; Z91.013 Allergy to seafood
CPT/HCPCS: 32555; 36415; 49083; 71035; 80048; 80076; 82947; 84484; 85027; 85610; 85730; 87071; 87075; 87205; 89050; A4215; C1729; C1892; C1894; J1815; J2250; J3010; P9046